=== PATIENT | female | born 1995 | race Hispanic/Latino ===

== ENCOUNTER 2018-11-11 17:50 | Inpatient (IN) | payer BC ==
--- NOTE | 2018-11-11 18:33 | C.PDOC ---
History Of Present Illness 23 year old female, with no PMHx presents to the ED complaining of vaginal spotting that began this morning. Patient states she is currently with twin gestation. Last US was done 5 days ago. She denies having any abdomi nal/pelvic pain, fever, chills, dysuria, vaginal discharge, or other complaints. Patient complains of mild low back pain. Time Seen by Provider: 11/11/18 18:26 Chief Complaint (Nursing): Female Genitourinary History Per: Patient History/Exam Limitations: no limitations Onset/Duration Of Symptoms: Hrs Current Symptoms Are (Timing): Still Present Pain Scale Rating Of: 0 Abnormal Vaginal Bleeding: Yes : 3 Para: 0 Past Medical History Reviewed: Historical Data, Nursing Documentation, Vital Signs Vital Signs: Last Vital Signs Temp 97.8 F 11/11/18 17:52 Pulse 99 H 11/11/18 17:52 Resp 20 11/11/18 17:52 BP 127/87 11/11/18 17:52 Pulse Ox 98 11/11/18 17:52 - Medical History PMH: No Chronic Diseases Surgical History: No Surg Hx Family History: States: Unknown Family Hx - Social History Hx Tobacco Use: No Hx Alcohol Use: No Hx Substance Use: No - Immunization History Hx Tetanus Toxoid Vaccination: No Hx Influenza Vaccination: No Hx Pneumococcal Vaccination: No Review Of Systems Except As Marked, All Systems Reviewed And Found Negative. Constitutional: Negative for: Fever, Chills Cardiovascular: Negative for: Chest Pain Respiratory: Negative for: Shortness of Breath Gastrointestinal: Negative for: Vomiting, Abdominal Pain, Diarrhea Genitourinary: Positive for: Vaginal Bleeding. Negative for: Dysuria, Frequency, Vaginal Discharge, Pelvic Pain Musculoskeletal: Positive for: Back Pain (mild low) Neurological: Negative for: Weakness, Numbness, Dizziness Physical Exam - Physical Exam Appears: Well, Non-toxic, No Acute Distress Skin: Normal Color, Warm Head: Atraumatic, Normacephalic Eye(s): bilateral: Normal Inspection, PERRL, EOMI Neck: Normal ROM Chest: Symmetrical Cardiovascular: Rhythm Regular, No Murmur Respiratory: Normal Breath Sounds, No Accessory Muscle Use Gastrointestinal/Abdominal: Soft, No Tenderness, No Distention, No Guarding Back: Normal Inspection Extremity: Bilateral: Atraumatic, Normal Color And Temperature Neurological/Psych: Oriented x3, Normal Speech ED Course And Treatment - Laboratory Results Result Diagrams: 11/11/18 18:36 11/11/18 18:36 O2 Sat by Pulse Oximetry: 98 (RA) Pulse Ox Interpretation: Normal - CT Scan/US Pelvic US Other Rad Studies (CT/US): Read By Radiologist, Radiology Report Reviewed CT/US Interpretation: Name:JUSTINA NERI Exam Date:Nov 11, 2018 7:08:49 PM EST. Modality Type:SD\US\SR. Description:US - UTERUS FIRST TRIMESTER(<14 WEEKS). Gender:F Laterality:Not applicable. :97 Referring Physician:Jose Francisco Graf (). EXAM: US Obstetrical, Complete <14 weeks. CLINICAL HISTORY: Vb and . TECHNIQUE: Transvaginal and transabdominal imaging of the maternal pelvis and a <14 week gestation with image documentation. COMPARISON: None provided. FINDINGS: GESTATION: A living twin IUP is demonstrated. Fetus A estimated to be 7 weeks and 5 days in age. cardiac rate 144 BPM. Fetus B estimated to be 8 weeks and 3 days in age. cardiac rate 168 bpm. UTERUS: Unremarkable. No myometrial mass. CERVIX: Closed. Unremarkable. OVARIES: Unremarkable. No mass. FREE FLUID: No free fluid. IMPRESSION: 1. Living twin intrauterine . No acute abnormality. 2. The ALON of fetus A is 06/25/2019. 3. The ALON of fetus B is 06/20/2019. . Electronically signed on Nov 11, 2018 8:19:01 PM EST by: Hammad Staples M.D., MACARIO Certified By ABR & CBCCT. Fellowship Trained MRI and CT Specialist Medical Decision Making Medical Decision Making: Impression: Vaginal bleeding during , Back pain Plan: - Labs - Transvag/Pelvic US Repeat vitals demonstrate patient spiked a fever, temp 100.8 ?pyelo no uri symtpoms Labs reviewed: Beta-HCG 413591 WBC elevated at 12k UA shows 1+ leuks, WBC, RBC, and few bacteria. Added on blood and urine cultures as well as flu swab. Patient given IV rocephin. US findings reviewed. Twin gestation confirmed. Of note patient is refusing pelvic exam at this time. Discussed plan to keep patient for concern for pyelonephritis. Patient is agreeable. 20:38 Paged patient's OB, Dr. Janna Gilmore. 20:[address] Gilmore, will admit. Disposition Counseled Patient/Family Regarding: Studies Performed, Diagnosis - Disposition Disposition: HOSPITALIZED Disposition Time: 20:47 Condition: STABLE - Clinical Impression Clinical Impression: Pyelonephritis - Scribe Statement The provider has reviewed the documentation as recorded by the Adrianna Ruiz Provider Attestation: All medical record entries made by the Adrianna were at my direction and personally dictated by me. I have reviewed the chart and agree that the record accurately reflects my personal performance of the history, physical exam, medical decision making, and the department course for this patient. I have also personally directed, reviewed, and agree with the discharge instructions and disposition. Decision To Admit - Pt Status Changed To: Hospital Disposition Of: Inpatient - Admit Certification Admit to Inpatient:: After my assessment, the patient will require hospitalization for at least two midnights. This is because of the severity of symptoms shown, intensity of services needed, and/or the medical risk in this patient being treated as an outpatient. - InPatient: Physician Admission Certification: I certify that this patient requires 2 or more midnights of care for the following reason:: needs iv antibiotics - . 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
[2018-11-11 18:40] LABS: BASO # 0.1 K/uL (0.0-0.2); BASO % 0.7 % (0.0-2.0); EOS % 0.3 % (0.0-4.0); HEMOGLOBIN 13.3 g/dL (11.0-16.0); LYMPH # 1.6 K/uL (1.0-4.3); MEAN CELL VOLUME 85.8 fL (81.0-99.0); MEAN CORPUSCULAR HEMOGLOBIN 28.1 pg (27.0-31.0); MEAN CORPUSCULAR HGB CONC 32.7 g/dL (33.0-37.0); MEAN PLATELET VOLUME 7.8 fL (7.2-11.7); MONO # 0.5 K/uL (0.0-0.8); MONO % 4.2 % (0.0-10.0); NEUT # 10.3 K/uL (1.8-7.0); NEUT % 81.8 % (50.0-75.0); RBC 4.75 Mil/uL (3.80-5.20); RED CELL DISTRIBUTION WIDTH 14.6 % (11.5-14.5); WHITE BLOOD COUNT 12.6 K/uL (4.8-10.8)
[2018-11-11 18:53] LABS: ALB/GLOB RATIO 1.6 (1.0-2.1); ALBUMIN 4.9 g/dL (3.5-5.0); ALT/SGPT 16 U/L (9-52); AST/SGOT 17 U/L (14-36); BLOOD UREA NITROGEN 9 mg/dL (7-17); CALCIUM 9.6 mg/dl (8.6-10.4); GFR NON-AFRICAN AMERICAN > 60
[2018-11-11 18:57] LABS: INR 1.1; PROTHROMBIN TIME 11.6 SECONDS (9.7-12.2)
[2018-11-11 20:11] LABS: HCG,QUALITATIVE URINE POSITIVE (NEGATIVE); SQUAMOUS EPITHIAL 9 /hpf (0-5); URINE BACTERIA FEW (<OCC); URINE BILIRUBIN NEGATIVE (NEGATIVE); URINE BLOOD 3+ (NEGATIVE); URINE CLARITY Hazy (Clear); URINE COLOR Yellow (YELLOW); URINE GLUCOSE (UA) NORMAL (Normal); URINE LEUKOCYTE ESTERASE 1+ Leu/uL (Negative); URINE PROTEIN 1+ mg/dL (NEGATIVE); URINE UROBILINOGEN NORMAL mg/dL (0.2-1.0)
[2018-11-11] MEDS ORDERED: cefTRIAXone IV 1 gm in Dextros 50 ML IVPB ONE (20:34)
[2018-11-12 08:13] VITALS: TEMP 98.6
--- NOTE | 2018-11-12 08:25 | US ---
Pelvic ultrasound History: . COMPARISON: None available. Technique: Real-time sonography was performed through the pelvis utilizing transabdominal technique. Findings: Uterus: 10.2 x 7.5 x 7.1 centimeters. Heterogeneous echotexture. Anteverted. Cervix measures 2.9 centimeters. Twin intrauterine . A: Intrauterine gestational sac measuring 3.04 centimeters corresponding to a gestational age of 8 weeks and 0 days. Yolk sac measures 3 millimeters. [place]-rump length measures 1.25 centimeters corresponding to a gestational age of 7 weeks and 3 days. heart rate of 144 beats per minute. B: Intrauterine gestational sac measures 3.83 centimeters corresponding to a gestational age of 9 weeks and 0 days. Yolk sac measures .18 centimeters. [place]-rump length measures 1.39 centimeters corresponding to a gestational age of 7 weeks and 5 days. heart rate of 168 beats per minute. No free fluid in the pelvic cul-de-sac. Suggestion of adjacent subchorionic hemorrhage measuring 1.2 x 0.5 x 1.0 centimeters. Right ovary: 3.6 x 2.0 x 2.7 centimeters. Normal flow. Left ovary: 2.4 x 1.8 x 2.1 centimeters. Normal flow. Impression: Twin intrauterine as described above with estimated gestational age of between 7 weeks and 3 days and 7 weeks and 5 days by crown-rump length of 1.25 centimeters and 1.39 centimeters respectively. heart rates of 144 and 168 beats per minute respectively. Suggestion of a small amount of subchorionic hemorrhage measuring up to 1.2 centimeters. Clinical correlation. Limited 1st trimester ultrasound for viability purposes only. Continued interval followup with serial ultrasound, serial HCG levels, and gynecological consultation would be helpful if clinically indicated. A preliminary report was generated at 8:19 p.m. on 11/11/[address] Hammad cano from [email or web address]
[2018-11-12 08:35] LABS: BASO % 0.4 % (0.0-2.0); EOS % 0.4 % (0.0-4.0); LYMPH # 1.8 K/uL (1.0-4.3); LYMPH % 17.9 % (20.0-40.0); MEAN CELL VOLUME 85.4 fL (81.0-99.0); MEAN CORPUSCULAR HGB CONC 33.9 g/dL (33.0-37.0); MEAN PLATELET VOLUME 8.1 fL (7.2-11.7); MONO # 0.5 K/uL (0.0-0.8); MONO % 4.6 % (0.0-10.0); NEUT # 7.7 K/uL (1.8-7.0); NEUT % 76.7 % (50.0-75.0); NRBC % 0.1 % (0.0-2.0); RBC 4.15 Mil/uL (3.80-5.20); RED CELL DISTRIBUTION WIDTH 14.3 % (11.5-14.5)
[2018-11-12 08:37] VITALS: BP 114/68; PULSE 87; RESP 18; O2SAT 98
[2018-11-12 09:00] LABS: ALB/GLOB RATIO 1.6 (1.0-2.1); ALBUMIN 4.2 g/dL (3.5-5.0); ALT/SGPT 9 U/L (9-52); AST/SGOT 21 U/L (14-36); BLOOD UREA NITROGEN 6 mg/dL (7-17); CALCIUM 9.6 mg/dl (8.6-10.4); GFR NON-AFRICAN AMERICAN > 60
[2018-11-12] MEDS ORDERED: ceFAZolin IV 1 gm in Dextrose 1 GM/50 ML BAG IVPB SCH (09:00)
--- NOTE | 2018-11-12 11:00 | CP.PCM.PN ---
<Malik Gao - Last Filed: 11/12/18 11:01> Subjective - Date & Time of Evaluation Date of Evaluation: 11/12/18 Time of Evaluation: 10:57 - Subjective Subjective: Patient seen and examined bedside. Patient states that her spotting has resolved and her back pain is better, currently at a 2/10. She reports mild morning sickness that she has had for the past week. Pt denies fever, chills, chest pain, SOB, n/v/d, abdominal pain, and leg swelling. Plan for discharge today and follow up with Dr. Fazal Gilmore. Objective - Vital Signs/Intake and Output Vital Signs (last 24 hours): Temp Pulse Resp BP Pulse Ox 98.6 F 87 18 114/68 98 11/12/18 08:09 11/12/18 08:00 11/12/18 08:00 11/12/18 08:00 11/12/18 08:00 - Medications Medications: Current Medications Acetaminophen (Tylenol 325mg Tab) 650 mg PO Q4 [facility] Last Admin: 11/12/18 08:09 Dose: 650 mg Cefazolin Sodium/Dextrose (Ancef Iv 1 Gm Duplex) 1 gm in 50 mls @ 100 mls/hr IVPB RQ12 JOSE; Protocol Last Admin: 11/12/18 10:40 Dose: 100 mls/hr - Labs Labs: 11/12/18 08:09 11/12/18 08:09 PT 11.6 SECONDS (9.7-12.2) 11/11/18 18:36 INR 1.1 11/11/18 18:36 APTT 32 SECONDS (21-34) 11/11/18 18:36 - Constitutional Appears: Well, Non-toxic, No Acute Distress - Head Exam Head Exam: ATRAUMATIC, NORMOCEPHALIC - Eye Exam Eye Exam: EOMI - ENT Exam ENT Exam: Mucous Membranes Moist - Neck Exam Neck Exam: Normal Inspection - Respiratory Exam Respiratory Exam: Clear to Ausculation Bilateral. absent: Rales, Rhonchi, Wheezes - Cardiovascular Exam Cardiovascular Exam: RRR. absent: Gallop, Rubs, Murmur - GI/Abdominal Exam GI & Abdominal Exam: Soft, Normal Bowel Sounds. absent: Distended, Guarding, Rigid, Tenderness, Rebound - Extremities Exam Extremities Exam: Full ROM. absent: Joint Swelling - Back Exam Back Exam: Full ROM, NORMAL INSPECTION. absent: CVA tenderness (L), CVA tenderness (R), muscle spasm, tenderness - Neurological Exam Neurological Exam: Alert, Awake, Oriented x3 - Skin Skin Exam: Normal Color, Warm Assessment and Plan - Assessment and Plan (Free Text) Assessment: 23 year old female with current twin intrauterine as per obstetric US on 11/11/18 with estimated gestational age of 7w3d who presented to the hospital with one day history of vaginal spotting and found to have mildly elevated WBC. Observed overnight, clinically stable, has no complaints today. Will discharge home and follow-up with Dr. Fazal Gilmore. Plan Vaginal Bleeding of Unknown etiology -currently resolved -H/H stable -VSS -WBC downtrending, currently WNL -afebrile -UA positive for leuk. esterase -negative flu -will d/c on macrobid Plan discussed with Dr. Gilmore <Janna Gilmore - Last Filed: 11/13/18 11:00> Objective - Vital Signs/Intake and Output Vital Signs (last 24 hours): Temp Pulse Resp BP Pulse Ox 98.6 F 87 18 114/68 98 11/12/18 08:09 11/12/18 08:00 11/12/18 08:00 11/12/18 08:00 11/12/18 08:00 - Labs Labs: 11/12/18 08:09 11/12/18 08:09 PT 11.6 SECONDS (9.7-12.2) 11/11/18 18:36 INR 1.1 11/11/18 18:36 APTT 32 SECONDS (21-34) 11/11/18 18:36 Assessment and Plan - Assessment and Plan (Free Text) Assessment: pt seen and examined admitted [facility] p[facility]o pt reevated no back pain, no vfever, dysuria, urgency, furqncy. vaignal bleeidng now resolved US subchironc hemaotms RH negaitv es/p rphgoam WBC 13-->10 pland dc rot 1 day precautiosn givne
--- NOTE | 2018-11-14 11:37 | CP.PCM.HP ---
History of Present Illness - History of Present Illness History of Present Illness: 23 yo @ 7+ wks di/di twins with viagnal spotitng adn lower pback pain and fever. 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 OB etcop x 1 [employer]IOR [employer]ITIONS: Dnes PMHY: dnes PSH: dneis FH: non cotnurs mEDS: pnv NKDASHX: negaive x 3 Present on Admission - Present on Admission Any Indicators Present on Admission: No Review of Systems - Review of Systems Systems not reviewed;Unavailable: Acuity of Condition - Constitutional Constitutional: As Per HPI - EENT Eyes: As Per HPI Nose/Mouth/Throat: absent: As Per HPI, Epistaxis, Nasal Congestion, Nasal Discharge, Nasal Obstruction, Nasal Trauma, Nose Pain, Post Nasal Drip, Sinus Pain, Sinus Pressure, Bleeding Gums, Change in Voice, Dental Pain, Dry Mouth, Dysphagia, Halitosis, Hoarsness, Lip Swelling, Mouth Lesions, Mouth Pain, Odynophagia, Sore Throat, Throat Swelling, Tongue Swelling, Facial Pain, Neck Pain, Neck Mass, Other - Cardiovascular Cardiovascular: absent: As Per HPI, Acrocyanosis, Chest Pain, Chest Pain at Rest, Chest Pain with Activity, Claudication, Diaphoresis, Dyspnea, Dyspnea on Exertion, Edema, Irregular Heart Rhythm, Pain Radiating to Arm/Neck/Jaw, Leg Edema, Leg Ulcers, Lightheadedness, Orthopnea, Palpitations, Paroxysmal Nocturnal Dyspnea, Pedal Edema, Radiating Pain, Rapid Heart Rate, Slow Heart Rate, Syncope, Other - Respiratory Respiratory: absent: As Per HPI, Cough, Dyspnea, Hemoptysis, Dyspnea on Ex ertion, Wheezing, Snoring, Stridor, Pain on Inspiration, Chest Congestion, Excessive Mucous Production, Change in Mucous Color, Pain with Coughing, Other - Gastrointestinal Gastrointestinal: Cramping. absent: As Per HPI, Abdominal Pain, Belching, Bloating, Change in Bowel Habits, Change in Stool Character, Coffee Ground Emesis, Constipation, Diarrhea, Dyspepsia, Dysphagia, Early Satiety, Excessive Flatus, Fecal Incontinence, Heartburn, Hematemesis, Hematochezia, Loose Stools, Melena, Nausea, Odynophagia, Temesmus, Vomiting, Other - Genitourinary Genitourinary: Flank Pain. absent: As Per HPI, Change in Urinary Stream, Difficulty Urinating, Dysuria, Hematuria, Pyuria, Nocturia, Urinary Incontinence, Urinary Frequency, Urinary Hesitance, Urinary Urgency, Voiding Freq/Small Amts, Freq UTI, Hx Renal/Bladder Calculi, Hx /Renal Surgery, Bladder Distension, Other - Reproductive: Female Reproductive:Female: Amenorrhea - Menstruation Menstruation: As Per HPI - Musculoskeletal Musculoskeletal: absent: As Per HPI, Abnormal Gait, Arthralgias, Atrophy, Back Pain, Deformity, Joint Swelling, Limited Range of Motion, Loss of Height, Muscle Cramps, Muscle Weakness, Myalgias, Neck Pain, Numbness, Radiating Pain into Limb, Stiffness, Tingling, Other Past Patient History - Infectious Disease Hx of Infectious Diseases: None - Past Social History Smoking Status: Never Smoked - MUSCULOSKELETAL/RHEUMATOLOGICAL Hx Falls: No - PSYCHIATRIC Hx Substance Use: No - SURGICAL HISTORY Hx Surgeries: No - ANESTHESIA Hx Anesthesia: No Meds Home Medications: Home Medication List Medication Instructions Recorded Confirmed Type Nitrofurantoin Monohyd/M-Cryst 100 mg PO BID 7 Days #14 capsule 11/12/18 Rx [Macrobid 100 mg Capsule] Allergies/Adverse Reactions: Allergies Allergy/AdvReac Type Severity Reaction Status Date / Time No Known Allergies Allergy Verified 11/11/18 17:55 Physical Exam - Constitutional Appears: Well, Non-toxic, No Acute Distress - Head Exam Head Exam: ATRAUMATIC - Eye Exam Eye Exam: EOMI Pupil Exam: PERRL - ENT Exam ENT Exam: Mucous Membranes Moist, Normal Exam - Respiratory Exam Respiratory Exam: Clear to Auscultation Bilateral, NORMAL BREATHING PATTERN - Cardiovascular Exam Cardiovascular Exam: REGULAR RHYTHM, +S1, +S2 - GI/Abdominal Exam GI & Abdominal Exam: Normal Bowel Sounds, Soft, Tenderness Additional comments: mild suprapubic tenderss, no rgudin gno reboud tnender no rigyd no uteirne tedner closed, small drak red vaignal spottings - Exam Additional comments: +lower back pain TTP - Extremities Exam Extremities exam: Positive for: normal inspection. Negative for: calf tende rness, full ROM, joint swelling, normal capillary refill, pedal edema, tenderness, pedal pulses present Results - Vital Signs Recent Vital Signs: Last Vital Signs Temp 98.6 F 11/12/18 08:09 Pulse 87 11/12/18 08:00 Resp 18 11/12/18 08:00 BP 114/68 11/12/18 08:00 Pulse Ox 98 11/12/18 08:00 - Labs Result Diagrams: 11/12/18 08:09 11/12/18 08:09 Assessment & Plan (1) Pyelonephritis Assessment and Plan: admit anbtiocs urien /bloo dlute teonol pnr fever pain rhogam us cont current magne dvt prophyalixs Status: Acute
== END 2018-11-12 14:00 | disposition home or self-care (01) | DRG 832 ==
LOC: C.ER 17:50 → C.4M 20:47
PROVIDERS: ADMIT Obstetrics & Gynecology; ATTEND Obstetrics & Gynecology
DX: O46.91 Antepartum hemorrhage, unspecified, first trimester (principal); O23.01 Infections of kidney in pregnancy, first trimester; Z3A.01 Less than 8 weeks gestation of pregnancy